=== PATIENT | female | born 1980 | race Caucasian/White ===

== ENCOUNTER 2023-05-16 08:27 | Emergency (ER) | payer BC, SELFPAY ==
[2023-05-16 08:36] VITALS: BP 136/92; PULSE 91; RESP 18; TEMP 36.6; O2SAT 98; BMI 40.4
--- NOTE | 2023-05-16 09:24 | ED_ITS ---
HPI - Wound/Laceration General Chief Complaint: Laceration/Wound Stated Complaint: right hand small finger laceration Time Seen by Provider: 05/16/23 08:49 History of Present Illness HPI narrative: This 42-year-old female comes in with a avulsion type laceration to the distal portion of her right little finger. She was preparing some food using a machine and got the skin avulsed from the distal lateral portion of her little finger. Her tetanus status is up-to-date. Related Data Allergies Allergy/AdvReac Type Severity Reaction Status Date / Time adhesive tape Allergy Verified 05/16/23 08:34 gabapentin Allergy Verified 05/16/23 08:34 lithium Allergy Verified 05/16/23 08:34 methadone Allergy Verified 05/16/23 08:34 prochlorperazine Allergy Verified 05/16/23 08:33 [From Compazine] vancomycin Allergy Verified 05/16/23 08:34 Review of Systems Status of ROS: Reports: 10 or more systems reviewed and unremarkable except as noted in History and below Narrative: Constitutional: No fevers, no weight gain or loss. Eyes: No discharge. No vision changes. HENT: No congestion, no sore throat, no ear pain. Cardiovascular: No chest pain, no palpitations. Respiratory: No shortness of breath, no wheezes, no cough. Gastrointestinal: No abdominal pain, no vomiting, no diarrhea. Genitourinary: No dysuria, no hematuria. Musculoskeletal: Normal range of motion. Skin: No rashes, no pruritis. Neurological: No dizziness, weakness, sensory change, speech change. Endo/Heme/Allergies: No bruising or bleeding. No polydipsia. Pysch: no suicidality, no anxiety, no insomnia. All other systems reviewed and are negative. PFSH PFS Social History Smoking Status: Never smoker Do you use any of these nicotine containing products: None Second hand tobacco smoke exposure: No How often do you have a drink containing alcohol: never AUDIT-C Alcohol total score: 0 Non-prescribed substance use: denies use service: No Exam Narrative: Exam Narrative: Constitutional: Well-developed, well-nourished, no acute distress. HEENT: Normocephalic, atraumatic. Neck: Normal range of motion. Nontender. Supple. Heart: Regular. No murmurs. Normal rate. Intact distal pulses. Lungs: Clear to auscultation. No chest discomfort. No wheezes, rhonchi, or rales. Abdomen: Normal bowel sounds. Nontender. No rebound tenderness. Genitalia: Deferred. Back: No midline tenderness. Normal range of motion. Extremities: Normal range of motion. Skin avulsion on the lateral aspect of the right little finger with persistent bleeding. Skin: Intact. No rash. Warm. No erythema or pallor. Neurologic: No altered sensation. No weakness. Alert and oriented. Psychiatric: No suicidality. No anxiety or depression. No insomnia. Nursing notes and vitals signs are reviewed. Const: Vital Signs, click to edit/add: Vital Signs - 24 hr 05/16/23 08:36 Temperature 97.8 F Pulse Rate [Pulse Oximeter] 91 Respiratory Rate 18 Blood Pressure [Ri ght Forearm] 136/92 H Pulse Oximetry 98 Oxygen Delivery Me thod Room Air Course Vital Signs Vital signs: Initial Vital Signs Temperature 97.8 F 05/16/23 08:36 Temperature Source Temporal Artery Scan 05/16/23 08:36 Pulse Rate 91 05/16/23 08:36 Pulse Rhythm Regular 05/16/23 08:36 Respiratory Rate 18 05/16/23 08:36 Blood Pressure 136/92 H 05/16/23 08:36 Blood Pressure Mean 106 H 05/16/23 08:36 Blood Pressure Position Supine 05/16/23 08:36 Pulse Oximetry 98 05/16/23 08:36 Oxygen Delivery Method Room Air 05/16/23 08:36 Vital Signs Temperature 97.8 F 05/16/23 08:36 Pulse Rate 91 05/16/23 08:36 Respiratory Rate 18 05/16/23 08:36 Blood Pressure 136/92 H 05/16/23 08:36 Pulse Oximetry 98 05/16/23 08:36 Oxygen Delivery Method Room Air 05/16/23 08:36 Temperature 97.8 F 05/16/23 08:36 Pulse Rate 91 05/16/23 08:36 Respiratory Rate 18 05/16/23 08:36 Blood Pressure 136/92 H 05/16/23 08:36 Pulse Oximetry 98 05/16/23 08:36 Oxygen Delivery Method Room Air 05/16/23 08:36 MDM - Wound/Laceration MDM Narrative Medical decision making narrative: This patient has an avulsion type injury of the distal portion of her right little finger with persistent bleeding. A finger exsanguinated her was of applied to stop bleeding. The wound was cleansed and the patient received injection of 1% lidocaine with epinephrine. Silver nitrate was then applied followed by Dermabond. A pressure dressing was applied and the tourniquet was released. There was no sign of ongoing bleeding. Instructions regarding wound care were given. Discharge Plan Discharge Clinical Impression: Avulsion of skin Patient Disposition: Home, Self-Care Condition: Improved Additional Instructions: Keep wound clean and dry. Keep wound covered with increased pressure if some bleeding persists. Follow up with MD otherwise as needed or return if worsening. Follow Up/Referrals: Provider,Not a Local [Primary Care Provider] - Stand Alone Forms: [employer] Info Instructions
== END 2023-05-16 09:32 | disposition home or self-care (01) ==
PROVIDERS: Emergency Provider Emergency Medicine Emergency Medical Services
DX: S61.216A Laceration without foreign body of right little finger without damage to nail, initial encounter (principal); W29.0XXA Contact with powered kitchen appliance, initial encounter
CPT/HCPCS: 12001; 99283; 99284

== ENCOUNTER 2024-11-09 16:23 | Emergency (ER) | payer BC, SELFPAY ==
[2024-11-09] VITALS (15 sets, daily range): BP systolic 101–112; BP diastolic 62–82; PULSE 102–205; RESP 16; TEMP 36.6; O2SAT 92–98; BMI 36.3
--- OUTSIDE RECORDS SUMMARY | 2024-11-09 16:25 | XMS_ITS | Continuity of Care Document ---
Author Organization [employer] Address [address] [place] [id number] Insurance Providers Payer Plan Claims Address Claims Phone Policy Number Group Number Relation Employer Guarantor Name Guarantor Guarantor Address Guarantor Phone [employer] [facility] [address], [place] [address] tel:[phone] Self Nataly Estrella [address] [place] [id number] Problems Condition ICD9 code ICD10 code SNOMED code Start Date End Date S tatus Encounter for screening for other metabolic disorders Z13.228 Results No Results Allergies, adverse reactions, alerts No known allergies and adverse reactions Medications No administered medications reported Vital Signs No vital signs reported Social History No smoking Hx information available
[2024-11-09 17:14] LABS: Lactate Sepsis w/Reflex* 2.4 mmol/L (0.5-1.9)
[2024-11-09] MEDS: 0.9 % SODIUM CHLORIDE 1000 ml 1,000 ML IV (17:16)
--- NOTE | 2024-11-09 17:17 | ED_ITS ---
HPI - General Adult General Date Seen: 11/09/24 Chief complaint: Syncope/Fainted Stated complaint: low blood pressure, passed out multiple times Time Seen by Provider: 11/09/24 17:06 Source: patient History of Present Illness HPI narrative: Patient is a 44-year-old woman who presents after several syncopal episodes yesterday related she believes to low blood pressures. She says that she had trouble with low blood pressures like this once about 3 months ago, and it was felt at that time to be related to her Mounjaro dosing being too high. She had lost about 35 lb over a short period of time. The dosing was decreased and she says things improved. She does take losartan chronically for high blood pressure and says her blood pressure is typically well controlled and runs around 120. She was getting pressures in the 80s at home today which prompted her to come in. She has otherwise been asymptomatic. Specifically, she denies headaches, chest pain, difficulty breathing, abdominal or back pain, vomiting, diarrhea, black or bloody stools, fevers, unusual rashes, or other symptoms. She says she did hit her head last night, she does not complain of severe headache and has no neck pain. Denies other injuries related to passing out. Related Data Home Medications ?Medication ?Instructions ?Recorded ?Confirmed ProAir HFA 11/09/24 Spravato 11/09/24 brexpiprazole 1 mg tablet (Rexulti) 1 mg PO DAILY 11/09/24 11/09/24 desvenlafaxine succinate 25 mg 25 mg PO DAILY 11/09/24 11/09/24 tablet,extended release 24 hr dextromethorphan IR 45 1 tab PO BID 11/09/24 11/09/24 mg-bupropion ER 105 mg biphasic tablet (Auvelity) ergocalciferol (vitamin D2) 1,250 1,250 mcg PO 2XW 11/09/24 11/09/24 mcg (50,000 unit) capsule levothyroxine 50 mcg tablet PO 11/09/24 levothyroxine 75 mcg tablet mcg PO 11/09/24 lorazepam 1 mg tablet 1 mg PO BID PRN 11/09/24 11/09/24 metformin 1,000 mg tablet 1,000 mg PO BID 11/09/24 11/09/24 montelukast 10 mg tablet 10 mg PO DAILY 11/09/24 11/09/24 olmesartan 20 mg tablet 20 mg PO DAILY 11/09/24 11/09/24 quetiapine 100 mg tablet 100 mg PO 3XD 11/09/24 11/09/24 rosuvastatin 40 mg tablet 40 mg PO DAILY 11/09/24 11/09/24 tirzepatide 10 mg/0.5 mL 10 mg subcut 11/09/24 subcutaneous pen injector (Rigounajithro) trazodone 100 mg tablet 100 mg PO QPM 11/09/24 11/09/24 Allergies Allergy/AdvReac Type Severity Reaction Status Date / Time adhesive tape Allergy Verified 05/16/23 08:34 gabapentin Allergy Verified 05/16/23 08:34 lithium Allergy Verified 05/16/23 08:34 methadone Allergy Verified 05/16/23 08:34 prochlorperazine (From Allergy Verified 05/16/23 08:33 Compazine) vancomycin Allergy Verified 05/16/23 08:34 Review of Systems Status of ROS: Reports: 10 or more systems reviewed and unremarkable except as noted in History and below [facility] Social History Smoking Status: Never smoker Do you use any of these nicotine containing products: None Second hand tobacco smoke exposure: No How often do you have a drink containing alcohol: never AUDIT-C Alcohol total score: 0 Non-prescribed substance use: denies use service: No Exam Narrative: Exam Narrative: Vital signs reviewed In general, alert, nontoxic woman. She looks little fatigued. Head: Normocephalic, atraumatic. No hematoma, abrasions or lacerations. Eyes: Sclera clear. Pupils equal and reactive. ENT: Mucous membranes moist. Throat is normal. Neck: Supple without adenopathy. Heart: Regular rate and rhythm without murmur. Lungs: Clear. No increased work of breathing, crackles or wheezes. Abdomen: Soft, nontender to palpation. Extremities: Well perfused, pulses intact. No significant edema. No calf tenderness. Neurologic: Alert, conversant. Speech fluent, face symmetric. Moves all extremities equally. Skin: Warm, dry well perfused. No rashes. Affect: Normal. Const: Vital Signs, click to edit/add: Vital Signs - 24 hr 11/09/24 16:27 11/09/24 17:15 11/09/24 17:30 Temperature 97.9 F Pulse Rate 114 H 106 H Pulse Rate [Pulse Oximeter] 116 H Respiratory Rate 16 Blood Pressure Blood Pressure [Ri ght Upper Arm] 103/72 Blood Pressure [or thostatic lying] Blood Pressure [or thostatic sitting] Blood Pressure [or thostatic standing ] Pulse Oximetry 98 96 92 Oxygen Delivery Me thod Room Air 11/09/24 17:35 11/09/24 17:40 11/09/24 17:41 Temperature Pulse Rate 107 H 117 H Pulse Rate [Pulse Oximeter] Respiratory Rate 16 Blood Pressure 101/69 112/82 Blood Pressure [Ri ght Upper Arm] Blood Pressure [or thostatic lying] 101/69 Blood Pressure [or thostatic sitting] 112/82 Blood Pressure [or thostatic standing ] 108/73 Pulse Oximetry 93 98 Oxygen Delivery Me thod Room Air 11/09/24 17:42 11/09/24 17:45 11/09/24 17:47 Temperature Pulse Rate 118 H 108 H 112 H Pulse Rate [Pulse Oximeter] Respiratory Rate Blood Pressure 108/73 105/71 Blood Pressure [Ri ght Upper Arm] Blood Pressure [or thostatic lying] Blood Pressure [or thostatic sitting] Blood Pressure [or thostatic standing ] Pulse Oximetry 97 95 Oxygen Delivery Me thod 11/09/24 18:00 11/09/24 18:02 11/09/24 18:15 Temperature Pulse Rate 104 H 112 H 105 H Pulse Rate [Pulse Oximeter] Respiratory Rate Blood Pressure 111/73 Blood Pressure [Ri ght Upper Arm] Blood Pressure [or thostatic lying] Blood Pressure [or thostatic sitting] Blood Pressure [or thostatic standing ] Pulse Oximetry 97 Oxygen Delivery Me thod 11/09/24 18:17 11/09/24 18:30 11/09/24 18:32 Temperature Pulse Rate 103 H 205 H 102 H Pulse Rate [Pulse Oximeter] Respiratory Rate 16 Blood Pressure 102/73 109/62 Blood Pressure [Ri ght Upper Arm] Blood Pressure [or thostatic lying] Blood Pressure [or thostatic sitting] Blood Pressure [or thostatic standing ] Pulse Oximetry 97 96 96 Oxygen Delivery Me thod Room Air Documenting provider has reviewed patient's vital signs: yes Course Course ED Course: Overall, exam is unrevealing. Blood pressure here is low normal at 103 systolic but she does have some tachycardia 116. Will check an EKG, labs to evaluate for metabolic derangement, hyperglycemia, dehydration, infection. Orthostatic vital signs ordered, will give a L of normal saline and see if that improves her symptomatically. If all workup is normal, would recommend that we hold her losartan for the time being. Labs are overall fairly unremarkable. Her lactate was slightly elevated at 2.4 but a venous gas shows no evidence of acidosis. CRP was less than 0.5, white blood cell count was normal at 8.9, hemoglobin was 14.4. Metabolic panel suggest mild dehydration with a BUN of 25 and a creatinine of 1.5. Her last creatinine in our system was in 2018 but it was 0.8 at that time. Blood sugars 152. EKG by my review showed a mild sinus tachycardia with a ventricular rate of 109. No acute ST segment changes, QT corrected of 398 milliseconds and a normal MN. Point care troponin was 0. I do not find any thing on her history to suggest this represents intracranial hemorrhage, pulmonary embolism, arrhythmia, acute coronary syndrome, blood loss, sepsis, or other concerning cause. At this time she is ambulatory without difficulty. Her orthostatics are negative. I think it is reasonable to let her go home, I recommended that she hold her losartan for couple of days and keep an eye on her blood pressures. If they are elevated again she can restart it, if not I would recommend further conversation with her primary doctor next week regarding this topic. Return any time for recurrent syncope or new symptoms. Vital Signs Vital signs: Initial Vital Signs Temperature 97.9 F 11/09/24 16:27 Temperature Source Temporal Artery Scan 11/09/24 16:27 Pulse Rate 116 H 11/09/24 16:27 Respiratory Rate 16 11/09/24 16:27 Blood Pressure 103/72 11/09/24 16: Blood Pressure Mean 82 11/09/24 16:27 Pulse Oximetry 98 11/09/24 16:27 Oxygen Delivery Method Room Air 11/09/24 16:27 Vital Signs Temperature 97.9 F 11/09/24 16:27 Pulse Rate 116 H 11/09/24 16:27 Respiratory Rate 16 11/09/24 16:27 Blood Pressure 103/72 11/09/24 16:27 Pulse Oximetry 98 11/09/24 16:27 Oxygen Delivery Method Room Air 11/09/24 16:27 Temperature 97.9 F 11/09/24 16:27 Pulse Rate 102 H 11/09/24 18:32 Respiratory Rate 16 11/09/24 18:32 Blood Pressure 109/62 11/09/24 18:32 Pulse Oximetry 96 11/09/24 18:32 Oxygen Delivery Method Room Air 11/09/24 18:32 Medications Administered Medications: Discontinued Medications Generic Name Dose Route Start Last Admin Trade Name Freq PRN Reason Stop Dose Admin Sodium Chloride 1,000 mls @ 1,000 mls/hr 11/09/24 17:15 11/09/24 17:50 0.9 % Sodium Chloride 1000 Ml IV 11/09/24 18:14 Infused .Q1H JENNIFER Infusion Medical Decision Making Lab Data Labs: Lab Results 11/09/24 11/09/24 11/09/24 Range/Units 17:00 17:10 17:12 WBC 8.86 (4.50-11.00) K/uL RBC 4.82 (4.00-5.20) m/uL Hgb 14.4 (12.0-16.0) gm/dL Hct 42.4 (33.0-51.0) % MCV 88 (80-100) fL MCH 30 (26-34) pg MCHC 34 (32-36) gm/dL RDW Coeff of Keyla 11.9 (11.5-15.5) % Plt Count 269 (140-440) K/uL Neut % (Auto) 62.2 (42.0-72.0) % Lymph % (Auto) 27.7 (20-44) % Kemper % (Auto) 9.7 (0.0-11.0) % Eos % (Auto) 0.1 (0.0-7.0) % Baso % (Auto) 0.1 (0.0-3.0) % Neut # (Auto) 5.51 (1.7-7.0) K/uL Lymph # (Auto) 2.45 (0.90-2.90) K/uL Kemper # (Auto) 0.90 (0.00-0.90) K/UL Eos # (Auto) 0.01 (0.00-0.50) K/uL Baso # (Auto) 0.01 (0.00-0.30) K/uL Abs Immat Gran (auto) 0.02 (0.00-0.30) K/uL Imm/Tot Granulo (auto) 0.2 % VBG pH 7.370 (7.32-7.43) VBG pCO2 43 (40-50) mmHG VBG pO2 44.6 (25-47) mmHG VBG HCO3 25 (21-28) mmol/L Sodium 134 L (135-149) mmol/L Potassium 3.9 (3.6-5.1) mmol/L Chloride 98 (96-114) mmol/L Carbon Dioxide 23 (20-32) mmol/L Anion Gap 13 (7-15) mEq/L BUN 25 H (5-24) mg/dL Creatinine 1.5 (0.5-1.5) mg/dL Estimated Creat Clear 44.34 Estimated GFR 44 ml/min Glucose 152 H (60-115) mg/dL Lactate 2.4 H (0.5-1.9) mmol/L Calcium 10.0 (8.4-10.6) mg/dL C-Reactive Protein < 0.5 L (0.5-1.0) mg/dL POC Troponin I 0.00 L (0.01-0.04) ng/ml Discharge Plan Discharge Clinical Impression: Syncope due to orthostatic hypotension, Dehydration Patient Disposition: Home, Self-Care Condition: Improved Instructions: Dehydration (DC), Syncope (ED) Additional Instructions: Overall, your labs are reassuring. They suggested maybe a little dehydrated which may be contributing to your lower blood pressures and dizziness. I would suggest holding your losartan for the next couple of days. Keep an eye on your blood pressures. If you are starting to run high again, you can restart it. If not, I would discuss this further with your primary doctor next week. If you have recurrent syncope, develop new symptoms such as fevers, chest pain, shortness of breath, vomiting, bloody stools or black stools or other new sympt oms, return any time to the emergency department. Prescriptions: No Action levothyroxine 75 mcg tablet PO levothyroxine 50 mcg tablet PO metformin 1,000 mg tablet 1,000 mg PO BID Mounjaro 10 mg/0.5 mL pen injector 10 mg subcut Auvelity 45-105 mg tablet, IR and ER, biphasic 1 tab PO BID quetiapine 100 mg tablet 100 mg PO 3XD desvenlafaxine succinate 25 mg tablet extended release 24 hr 25 mg PO DAILY Rexulti 1 mg tablet 1 mg PO DAILY Spravato trazodone 100 mg tablet 100 mg PO QPM montelukast 10 mg tablet 10 mg PO DAILY ergocalciferol (vitamin D2) 1,250 mcg (50,000 unit) capsule 1,250 mcg PO 2XW lorazepam 1 mg tablet 1 mg PO BID PRN olmesartan 20 mg tablet 20 mg PO DAILY rosuvastatin 40 mg tablet 40 mg PO DAILY ProAir HFA Follow Up/Referrals: Provider,Not a Local [Primary Care Provider] - Stand Alone [facility]: [facility] Info Instructions
[2024-11-09 17:18] LABS: Basophils Absolute Auto 0.01 K/uL (0.00-0.30); Basophils Percent Auto 0.1 % (0.0-3.0); Eosinophils Absolute Auto 0.01 K/uL (0.00-0.50); Eosinophils Percent Auto 0.1 % (0.0-7.0); Hematocrit 42.4 % (33.0-51.0); Hemoglobin* 14.4 gm/dL (12.0-16.0); Immature Granulocytes Abs Auto 0.02 K/uL (0.00-0.30); Immature Granulocytes Pct Auto 0.2 %; Lymphocytes Absolute Auto 2.45 K/uL (0.90-2.90); Lymphocytes Percent Auto 27.7 % (20-44); Mean Corpuscular HGB Conc 34 gm/dL (32-36); Mean Corpuscular Hemoglobin 30 pg (26-34); Mean Corpuscular Volume 88 fL (80-100); Monocytes Percent Auto 9.7 % (0.0-11.0); Neutrophils Absolute Auto 5.51 K/uL (1.7-7.0); Neutrophils Percent Auto 62.2 % (42.0-72.0); Platelet Count* 269 K/uL (140-440); RDW Coefficient of Variation % 11.9 % (11.5-15.5); Red Blood Count 4.82 m/uL (4.00-5.20); White Blood Count* 8.86 K/uL (4.50-11.00)
[2024-11-09 17:31] LABS: Slide Review Reflex No
[2024-11-09 17:36] LABS: Chloride* 98 mmol/L (96-114)
[2024-11-09 17:37] LABS: Potassium* 3.9 mmol/L (3.6-5.1); Sodium* 134 mmol/L (135-149)
[2024-11-09 17:39] LABS: Creatinine* 1.5 mg/dL (0.5-1.5); Est. Creatinine Clearance* 44.34; Estimated Glomerular Filt Rate 44 ml/min
[2024-11-09 17:40] LABS: Anion Gap 13 mEq/L (7-15); Blood Urea Nitrogen* 25 mg/dL (5-24); Carbon Dioxide* 23 mmol/L (20-32); Glucose* 152 mg/dL (60-115)
[2024-11-09 17:48] LABS: C Reactive Protein* < 0.5 mg/dL (0.5-1.0)
[2024-11-09 18:03] LABS: PCO2 VBG 43 mmHG (40-50)
[2024-11-09 18:04] LABS: PO2 VBG 44.6 mmHG (25-47)
[2024-11-09 18:07] LABS: HCO3 VBG 25 mmol/L (21-28)
== END 2024-11-09 18:42 | disposition home or self-care (01) ==
PROVIDERS: Emergency Provider Emergency Medicine
DX: I95.1 Orthostatic hypotension (principal)
CPT/HCPCS: 36415; 80048; 81001; 82803; 83605; 84484; 85025; 86140; 93005; 99284; J7030